=== PATIENT | male | born 1945 | race Caucasian/White ===

== ENCOUNTER → 2019-02-19 10:08 | Outpatient (CLI) | payer MEDICARE, OTHER, SELFPAY ==
--- NOTE | 2019-02-19 | DI.MRI.S_ITS ---
PROCEDURE: MR LUMBAR SPINE WO CON INDICATIONS: Low back pain TECHNIQUE: Noncontrast sagittal T1 spin echo and T2 fast echo, sagittal STIR, axial T1 and T2 fast spin echo through the lumbar spine. In cases with scoliosis, additional coronal T2 fast spin echo may be performed. COMPARISON: None. FINDINGS: Image quality: Excellent. Alignment and Curvature: There is normal bony alignment. Bone Marrow: Marrow is of normal overall signal. No acute vertebral body compression fractures. Spinal Cord: Conus medullaris terminates at the L1-L2 level. Visualized cord demonstrates normal signal and size. Paraspinous Soft Tissues: No paravertebral masses. T12-L1: No canal stenosis or foraminal stenosis. Facet joints are unremarkable. L1-L2: Normal appearance. L2-L3: Normal appearance. L3-L4: Normal appearance. L4-L5: Moderate chronic disc height loss. Diffuse disc bulge. Bilateral facet and ligament hypertrophy. Severe canal stenosis secondary to a combination of disc bulge and facet and ligament hypertrophy. Severe left foraminal narrowing secondary to foraminal disc bulge and facet hypertrophy. Moderate right foraminal narrowing. L5-S1: Diffuse posterior disc bulge, eccentric to the right. The bilateral S1 nerve roots are abutted in the lateral recesses. The right S1 nerve root is mildly posteriorly displaced. There is severe right foraminal narrowing. IMPRESSION: 1. There is severe multifactorial canal stenosis at L4-L5. There is also severe left foraminal narrowing and moderate right foraminal narrowing. 2. L5-S1, there is diffuse posterior disc bulge abutting the bilateral S1 nerve roots and mildly posteriorly displacing the right S1 nerve root. There is severe right foraminal narrowing at this level. Dictated by: Demar Barrera M.D. on 02/21/2019 at 9:45 Approved by: Demar Barrera M.D. on 02/21/2019 at 9:51
== END ==
PROVIDERS: Visit Provider Orthopaedic Surgery Orthopaedic Surgery of the Spine
DX: M51.27 Other intervertebral disc displacement, lumbosacral region (principal); M51.26 Other intervertebral disc displacement, lumbar region; M48.07 Spinal stenosis, lumbosacral region; M48.061 Spinal stenosis, lumbar region without neurogenic claudication
CPT/HCPCS: 72148

== ENCOUNTER → 2019-04-05 08:08 | Outpatient (CLI) | payer MEDICARE, OTHER, SELFPAY ==
--- NOTE | 2019-04-05 | DI.RAD.S_ITS ---
PROCEDURE: XR ABDOMEN 1V INDICATIONS: CALCULUS OF KIDNEY TECHNIQUE: One view of the abdomen acquired. COMPARISON: [facility], CR, XR ABDOMEN 1 VIEW, 03/24/2019, 6:02. FINDINGS: Surgical changes and devices: None. Bowel: Bowel gas pattern is normal. Soft tissues: No new suspicious abdominal calcifications, and the previously identified area of left-sided large calculi at the left upper quadrant are again seen. A double pigtail ureteral stent has been placed, and the calculus is seen to be positioned at the lower third collecting system and area of the left kidney, measuring up to 2.2 cm craniocaudad and 1.1 cm transverse. Visualized solid organ contours appear normal in size. Bones: No suspicious bony lesions. IMPRESSION: Persistent large calculus measuring up to 1.1 x 2.2 cm at the lower third collecting system of the left kidney in this patient with a double pigtail left ureteral catheter in expected position. Dictated by: Luther Pennington M.D. on 04/05/2019 at 10:59 Approved by: Luther Pennington M.D. on 04/05/2019 at 11:01
== END ==
PROVIDERS: Visit Provider Urology
DX: N20.0 Calculus of kidney (principal)
CPT/HCPCS: 74018

== ENCOUNTER 2019-09-23 12:07 | Emergency (ER) | payer MEDICARE, OTHER, SELFPAY ==
--- NOTE | 2019-09-23 12:25 | DI.RAD.S_ITS ---
PROCEDURE: XR CHEST 1V INDICATIONS: chest pain TECHNIQUE: One view of the chest was acquired. COMPARISON: None. FINDINGS: Surgical changes and devices: None. Lungs and pleura: Lungs are clear. No pleural effusions or pneumothorax. Slight elevation of the right diaphragm is present. Mediastinum: Mediastinal contours appear normal. Heart size is normal. There is aortic atherosclerosis. Bones and chest wall: No suspicious bony lesions. Overlying soft tissues appear unremarkable. IMPRESSION: No acute cardiopulmonary process is evident. Dictated by: Costa Awan M.D. on 09/23/2019 at 12:21 Approved by: Costa Awan M.D. on 09/23/2019 at 12:22
[2019-09-23 12:34] VITALS: BP 157/91; PULSE 105; RESP 18; TEMP 36.5; O2SAT 98; BMI 25.0
[2019-09-23 13:00] LABS: Add Manual Diff / Slide Review NO; Basophils Absolute Auto 0 /uL (0-100); Basophils Percent Auto 0.8 % (0-2); Eosinophils Absolute Auto 200 /uL (0-450); Eosinophils Percent Auto 3.7 % (2-4); Hemoglobin 15.7 g/dL (13.5-17.5); Lymphocytes Absolute Auto 1300 /uL (1100-4500); Lymphocytes Percent Auto 22.3 % (25-40); Mean Corpuscular HGB Conc 34.9 % (30-36); Mean Corpuscular Hemoglobin 32.3 PG (26-34); Mean Corpuscular Volume 92.5 fL (80-100); Monocytes Absolute Auto 400 /uL (0-900); Monocytes Percent Auto 6.4 % (3-14); Neutrophils Absolute Auto 3900 /uL (1500-7000); Neutrophils Percent Auto 66.8 % (50-75); Platelet Count 235 X10^3/uL (150-400); Red Blood Cell Count 4.86 X10^6/uL (4.5-5.9); Red Cell Distribution Width 12.7 % (11.6-14.8); White Blood Cell Count 5.8 X10^3/uL (4.5-11.0)
[2019-09-23 13:08] LABS: Prothrombin Time 11.2 SECONDS (10.1-12.7)
[2019-09-23 13:10] LABS: PTT Partial Thromboplastin Tim 31 SECONDS (26.4-36.2)
[2019-09-23 13:13] LABS: Alanine Aminotransferase 39 IU/L (<50); Albumin 4.5 g/dL (3.5-5.0); Albumin Globulin Ratio 1.5 (1.0-2.8); Alkaline Phosphatase 127 U/L (38-126); Aspartate Aminotransferase 47 IU/L (17-59); BUN Creatinine Ratio 16.7 (6-22); Bilirubin Total 0.7 mg/dL (0.2-1.3); Blood Urea Nitrogen 10 mg/dL (9-20); Calcium 9.6 mg/dL (8.4-10.2); Carbon Dioxide 25 mmol/L (22-32); Chloride 98 mmol/L (98-107); Creatine Kinase 76 U/L (55-170); Estimated Glomerular Filt Rate > 60.0 mL/min (>60); Glucose 389 mg/dL (80-110); HEMOLYSIS < 15 (0-50); Lipase 81 U/L (23-300); Potassium 4.3 mmol/L (3.4-5.1); Sodium 133 mmol/L (137-145); Total Protein 7.5 g/dL (6.3-8.2)
--- NOTE | 2019-09-23 13:23 | ED.CHESTPAIN ---
HPI - Chest Pain General Chief Complaint: Chest Pain Stated Complaint: Chest [place] Time Seen by Provider: 09/23/19 12:38 Source: patient Mode of arrival: Ambulatory Limitations: no limitations History of Present Illness HPI narrative: 74-year-old gentleman with diabetes, high blood pressure, hyperlipidemia no long history of atherosclerotic disease with prior stents who presents with a month of increasing severe fatigue, 2 weeks of increasing exertional dyspnea and 3-4 days of increasing chest tightness. The tightness today is exacerbated with almost no movement in continues at rest. He does not describe it is severe pain. He does not report any claudication. He states that this is similar pain to chest pain prior to stenting previously. He describes no fever, cough, chills, lower extremity edema, vomiting, diarrhea, abdominal pain, neurologic changes or skin changes Related Data Home Medications Medication Instructions Recorded Confirmed amlodipine 5 mg PO DAILY 09/23/19 09/23/19 clopidogrel 75 mg PO DAILY 09/23/19 09/23/19 glipizide 10 mg PO BID 09/23/19 09/23/19 insulin glargine [Lantus Solostar 30 unit SUBCUT DAILY 09/23/19 09/23/19 U-100 Insulin] lisinopril 20 mg PO DAILY 09/23/19 09/23/19 pravastatin 40 mg PO DAILY 09/23/19 09/23/19 sitagliptin-metformin [Janumet] 1 tab PO DAILY 09/23/19 09/23/19 tamsulosin 0.4 mg PO QPM 09/23/19 09/23/19 turmeric root extract 500 mg PO DAILY 09/23/19 09/23/19 venlafaxine 150 mg PO DAILY 09/23/19 09/23/19 zolpidem 10 mg PO BEDTIME 09/23/19 09/23/19 Allergies Allergy/AdvReac Type Severity Reaction Status Date / Time No Known Drug Allergies Allergy Verified 09/23/19 13:44 Review of Systems Review of Systems Narrative: All systems reviewed and are unremarkable except as noted in HPI and below Patient History Medical History (Updated 09/23/19 @ 17:17 by Maya Chen MD) CAD (coronary artery disease) (Acute) Diabetes (Acute) Hyperlipidemia (Acute) Hypertension (Acute) Tobacco abuse (Acute) Social History Smoking Status: Current every day smoker Smoking Status: Current every day smoker tobacco type: cigarettes Substance Use Type: does not use Exam Narrative Exam Narrative: General: Healthy appearing, in no acute distress. Able to give a complete and coherent history. Well-nourished well-developed HEENT: Moist mucous membranes, normal sclera with reactive pupils, Neck: No JVD, supple Respiratory: Lungs with minor scattered wheezing no rales no rhonchi. Full and symmetrical air movement Cardiac: Regular rate and rhythm no murmurs no bruits Abdomen: Soft nontender good bowel tones, no flank pain Skin: Warm and dry, no rashes Neurologic: Grossly neurologically intact with no obvious asymmetries or abnormalities Extremities: No trauma, well perfused Psych: Cooperative, appropriate insight and affect Initial Vital Signs Initial Vital Signs: Vital Signs Temperature 97.7 F 09/23/19 12:34 Pulse Rate 105 H 09/23/19 12:34 Respiratory Rate 18 09/23/19 12:34 Blood Pressure 157/91 H 09/23/19 12:34 Pulse Oximetry 98 09/23/19 12:34 Course Orders Ordered: ED Orders 09/23/19 12:25 XR chest 1V Stat EKG-12 Lead Stat 09/23/19 12:50 Complete Blood Count AUTO DIFF Stat Comprehensive Metabolic Panel Stat Lipase Stat Partial Thromboplastin Time Stat Prothrombin Time INR Stat Troponin & CK Cardiac Panel Stat Nitroglycerin (Nitrostat) 0.4 mg SL [id number] PRN PRN Reason: Chest Pain Last Admin: 09/23/19 13:44 Dose: 0.4 mg Documented by: DREW Discontinued Medications Aspirin (Aspirin Chew) 324 mg PO NOW ONE Stop: 09/23/19 13:39 Last Admin: 09/23/19 13:46 Dose: 324 mg Documented by: DREW Nicotine (Nicoderm) 21 mg TOP NOW ONE Stop: 09/23/19 17:19 Last Admin: 09/23/19 17:52 Dose: 21 mg Documented by: DREW Nitroglycerin (Nitro-Bid) 0.5 inch TOP NOW ONE Stop: 09/23/19 15:35 Last Admin: 09/23/19 17:17 Dose: 0.5 inch Documented by: DREW Vital Signs Vital signs: Vital Signs - 8 hr 09/23/19 12:34 09/23/19 13:44 09/23/19 13:52 Temperature 97.7 F Pulse Rate 105 H 114 H Respiratory Rate 18 13 Blood Pressure 157/91 H 157/96 H Blood Pressure [Right Arm] 157/96 H Pulse Oximetry 98 98 09/23/19 15:06 09/23/19 17:17 09/23/19 17:32 Temperature Pulse Rate 93 H 99 H Respiratory Rate 13 19 Blood Pressure 153/47 H Blood Pressure [Right Arm] 110/73 137/76 Pulse Oximetry 97 MDM - Chest Pain Medical Records Data Attestation: I reviewed the patient's medical records. Lab Data Attestation: I reviewed the patient's lab results. Lab results narrative: Mildly elevated alkaline phosphatase Result diagrams: 09/23/19 12:50 09/23/19 12:50 Labs: Lab Results 09/23/19 09/23/19 09/23/19 Range/Units 12:50 12:50 12:50 WBC 5.8 (4.5-11.0) X10^3/uL RBC 4.86 (4.5-5.9) X10^6/uL Hgb 15.7 (13.5-17.5) g/dL Hct 45.0 (41-53) % MCV 92.5 (80-100) fL MCH 32.3 (26-34) PG MCHC 34.9 (30-36) % RDW 12.7 (11.6-14.8) % Plt Count 235 (150-400) X10^3/uL Neut % (Auto) 66.8 (50-75) % Lymph % (Auto) 22.3 L (25-40) % [place] % (Auto) 6.4 (3-14) % Eos % (Auto) 3.7 (2-4) % Baso % (Auto) 0.8 (0-2) % Neut # (Auto) 3900 (7481-4603) /uL Lymph # (Auto) 1300 (5966-0109) /uL [place] # (Auto) 400 (0-900) /uL Eos # (Auto) 200 (0-450) /uL Baso # (Auto) 0 (0-100) /uL PT 11.2 (10.1-12.7) SECONDS INR 1.0 (0.9-1.3) APTT 31 (26.4-36.2) SECONDS Sodium 133 L (137-145) mmol/L Potassium 4.3 (3.4-5.1) mmol/L Chloride 98 (98-107) mmol/L Carbon Dioxide 25 (22-32) mmol/L BUN 10 (9-20) mg/dL Creatinine 0.60 L (0.66-1.25) mg/dL Estimated GFR > 60.0 (>60) mL/min BUN/Creatinine Ratio 16.7 (6-22) Glucose 389 H (80-110) mg/dL Calcium 9.6 (8.4-10.2) mg/dL Total Bilirubin 0.7 (0.2-1.3) mg/dL AST 47 (17-59) IU/L ALT 39 (<50) IU/L Alkaline Phosphatase 127 H (38-126) U/L Total Creatine Kinase 76 (55-170) U/L CK-MB (CK-2) TNP CK-MB (CK-2) Rel Index TNP Troponin I < 0.012 (0.01-0.034) ng/mL Total Protein 7.5 (6.3-8.2) g/dL Albumin 4.5 (3.5-5.0) g/dL Globulin 3.0 (1.7-4.1) g/dL Albumin/Globulin Ratio 1.5 (1.0-2.8) Lipase 81 (23-300) U/L Imaging Data Chest x-ray: Radiologist's Impression: IMPRESSION: No acute cardiopulmonary process is evident. Dictated by: Costa Awan M.D. on 09/23/2019 at 12:21 ECG Data Interpretation: Sinus tach at a rate of 106 Incomplete right bundle branch block Old inferior myocardial infarction No acute ischemia MDM Narrative Medical decision making narrative: Significant risk factors for recurrent acute coronary syndrome. His history is highly suspicious for increasing symptoms than exertional dyspnea and now worsening pain continuing at rest. Pain is completely relieved with nitro. His HEART score is 6. I suspect that he likely would benefit from a repeat catheterization so will moved to see if there are beds available at [facility]. He has not yet established care with a r specialist, he recently moved from [place]. 16:11 care is reviewed with Dr. Whitaker, cardiology. He agrees with transfer to [facility], care by hospitalist service and cardiology consult with probable need for heart catheterization within the next 24 hours unless there are acute changes. Currently patient remains pain free with nitro paste in place 17:[address] [facility] Hospitalist: Will accept patient with diagnosis of unstable angina/acute coronary syndrome without evidence of acute infarct ALS transport to [facility] will be arranged Discharge Plan Departure Patient Disposition: [facility] Clinical Impression: Angina pectoris, unstable Prescriptions: No Action pravastatin 40 mg tablet 40 mg PO DAILY RF: 0 lisinopril 20 mg tablet 20 mg PO DAILY RF: 0 glipizide 10 mg tablet 10 mg PO BID RF: 0 venlafaxine 150 mg capsule,extended release 24hr 150 mg PO DAILY RF: 0 clopidogrel 75 mg tablet 75 mg PO DAILY RF: 0 amlodipine 5 mg tablet 5 mg PO DAILY RF: 0 tamsulosin 0.4 mg capsule 0.4 mg PO QPM RF: 0 zolpidem 10 mg tablet 10 mg PO BEDTIME RF: 0 Janumet 50-1,000 mg tablet 1 tab PO DAILY RF: 0 Lantus Solostar U-100 Insulin 100 unit/mL (3 mL) insulin pen 30 unit SUBCUT DAILY RF: 0 turmeric root extract 500 mg Capsule 500 mg PO DAILY RF: 0
[2019-09-23 13:24] LABS: Troponin I < 0.012 ng/mL (0.01-0.034)
[2019-09-23 13:44] VITALS: BP 157/96
[2019-09-23] MEDS: NITROGLYCERIN 0.4 MG SL TAB SL (13:44)
[2019-09-23] MEDS: ASPIRIN 81 MG CHEW TAB 324 MG PO (13:46)
[2019-09-23 13:52] VITALS: BP 157/96; PULSE 114; RESP 13; O2SAT 98
[2019-09-23 15:06] VITALS: BP 110/73; PULSE 93; RESP 13
[2019-09-23 17:17] VITALS: BP 153/47
[2019-09-23] MEDS: NITROGLYCERIN OINT 1 INCH/GM OINT...G. 0.5 INCH TOP (17:17)
[2019-09-23 17:32] VITALS: BP 137/76; PULSE 99; RESP 19; O2SAT 97
[2019-09-23] MEDS: NICOTINE 21 MG PATCH TOP (17:52)
== END 2019-09-23 18:30 | disposition short-term general hospital (02) ==
PROVIDERS: Emergency Provider Emergency Medicine
DX: I25.110 Atherosclerotic heart disease of native coronary artery with unstable angina pectoris (principal); I11.0 Hypertensive heart disease with heart failure; E78.5 Hyperlipidemia, unspecified; E11.9 Type 2 diabetes mellitus without complications; Z72.0 Tobacco use
CPT/HCPCS: 36415; 71045; 80053; 82550; 83690; 84484; 85025; 85610; 85730; 93005; 93010; 99284

== ENCOUNTER → 2020-03-23 18:31 | Outpatient (ROUT) | payer MEDICARE, OTHER, SELFPAY ==
[2020-03-23 19:26] LABS: Add Manual Diff / Slide Review NO; Basophils Absolute Auto 0 /uL (0-100); Basophils Percent Auto 0.7 % (0-2); Eosinophils Absolute Auto 400 /uL (0-450); Eosinophils Percent Auto 5.4 % (2-4); Hematocrit 41.2 % (41-53); Lymphocytes Absolute Auto 1500 /uL (1100-4500); Lymphocytes Percent Auto 21.9 % (25-40); Mean Corpuscular Hemoglobin 31.1 PG (26-34); Mean Corpuscular Volume 91.4 fL (80-100); Monocytes Absolute Auto 500 /uL (0-900); Monocytes Percent Auto 7.3 % (3-14); Neutrophils Absolute Auto 4400 /uL (1500-7000); Neutrophils Percent Auto 64.7 % (50-75); Platelet Count 235 X10^3/uL (150-400); Red Blood Cell Count 4.51 X10^6/uL (4.5-5.9); Red Cell Distribution Width 12.8 % (11.6-14.8); White Blood Cell Count 6.7 X10^3/uL (4.5-11.0)
[2020-03-23 19:48] LABS: Alanine Aminotransferase 34 IU/L (<50); Albumin Globulin Ratio 1.6 (1.0-2.8); Alkaline Phosphatase 147 U/L (38-126); Aspartate Aminotransferase 37 IU/L (17-59); BUN Creatinine Ratio 16.1 (6-22); Bilirubin Total 0.6 mg/dL (0.2-1.3); Blood Urea Nitrogen 9 mg/dL (9-20); Calcium 9.4 mg/dL (8.4-10.2); Carbon Dioxide 26 mmol/L (22-32); Chloride 100 mmol/L (98-107); Cholesterol 146 mg/dL (140-199); Estimated Glomerular Filt Rate > 60.0 mL/min (>60); Globulin 2.5 g/dL (1.7-4.1); Glucose 336 mg/dL (80-110); HDL Cholesterol 33 mg/dL (40-60); HEMOLYSIS < 15 (0-50); LDL Cholesterol Calculated 52 mg/dL (<100); Sodium 134 mmol/L (137-145); Total Protein 6.5 g/dL (6.3-8.2); Triglycerides 303 mg/dL (35-150)
[2020-03-23 20:14] LABS: TSH w/ Reflex to FT4 0.77 uIU/mL (0.47-4.68)
[2020-03-23 20:17] LABS: Prostate Specific Antigen 0.354 ng/mL (0.10-4.00)
== END ==
PROVIDERS: Visit Provider Internal Medicine
DX: E78.2 Mixed hyperlipidemia (principal); N40.1 Benign prostatic hyperplasia with lower urinary tract symptoms; R53.83 Other fatigue
CPT/HCPCS: 80053; 80061; 84153; 84443; 85025

== ENCOUNTER → 2022-04-22 11:04 | Outpatient (CLI) | payer MEDICARE, OTHER, SELFPAY ==
--- NOTE | 2022-04-22 | DI.RAD.S_ITS ---
PROCEDURE: XR LUMBAR SPINE 2-3V INDICATIONS: acute bilateral low back pain with sciatica TECHNIQUE: 3 views of the lumbar spine were acquired. COMPARISON: None. FINDINGS: Bones: 5 [id number] vertebrae are present. There is very mild rightward curvature of lower lumbar spine centered at L3-4 level. Degenerative endplate changes, loss of disc height and bilateral facet arthrosis throughout lumbar spine is seen more prominent at L4-5 and L5-S1 levels. No vertebral body compression fractures. No suspicious bony lesions. Soft tissues: Overlying bowel gas pattern is normal. No suspicious soft tissue calcifications. IMPRESSION: Very mild rightward curvature of lower lumbar spine centered at L3-4 level. Degenerative disc disease throughout lumbar spine as above. No acute compression fracture or significant listhesis. Dictated by: Jimbo Peña M.D. on 04/22/2022 at 13:02 Approved by: Jimbo Peña M.D. on 04/22/2022 at 13:12
== END ==
PROVIDERS: PCP Student in an Organized Health Care Education/Training Program; Referring Provider Student in an Organized Health Care Education/Training Program; Visit Provider Student in an Organized Health Care Education/Training Program
DX: M51.16 Intervertebral disc disorders with radiculopathy, lumbar region; M51.17 Intervertebral disc disorders with radiculopathy, lumbosacral region
CPT/HCPCS: 72100

== ENCOUNTER → 2022-05-23 11:04 | Outpatient (CLI) | payer MEDICARE, OTHER, SELFPAY ==
--- NOTE | 2022-05-23 11:39 | DI.MRI.S_ITS ---
PROCEDURE: MR LUMBAR SPINE WO CON INDICATIONS: SPONDYLOLISTHESIS, LUMBAR REGION TECHNIQUE: Noncontrast sagittal T1 spin echo and T2 fast echo, sagittal STIR, and T2 fast spin echo through the lumbar spine. In cases with scoliosis, additional coronal T2 fast spin echo may be performed. COMPARISON: [facility], MR, MR LUMBAR SPINE WO CON, 02/19/2019, 10:24. [facility], CR, XR LUMBAR SPINE 2-3V, 04/22/2022, 11:19. [facility], CT, CT ABDOMEN RENAL PROTOCOL, 03/08/2019, 16:44. FINDINGS: Image quality: This examination is limited by involuntary motion artifact. Alignment and Curvature: There is minimal to mild dextroconvex lumbar scoliotic curvature. There is overall straightening of the normal lumbar lordosis. No focal AP alignment abnormality is seen. Bone Marrow: Marrow is of normal overall signal. No acute vertebral body compression fractures. Spinal Cord: Conus medullaris terminates at the L1 level. Visualized cord demonstrates normal signal and size. Paraspinous Soft Tissues: No paravertebral masses. Simple appearing bilateral renal cysts can be seen. T12-L1: Normal appearance. L1-L2: No significant abnormality is seen. L2-L3: No significant abnormality is seen. L3-L4: The disc height is well-preserved. Loss of disc signal is seen at this level. Moderate disc bulge is seen, which is eccentric to the right. Mild facet joint hypertrophy is seen. There is [id number] bilateral neural foraminal narrowing seen. Mild central canal narrowing is seen. When comparison is made with the prior images, these findings are similar. L4-L5: There is at least moderate loss of disc height and disc signal seen on the left side. Reactive marrow endplate changes are seen which are hypointense on T1-weighted imaging and hyperintense on T2 weighted imaging, which is most consistent with edema (Modic type I changes). At least moderate disc bulge is seen, with a central disc extrusion, with mild superior migration of the disc material. Moderate to prominent facet hypertrophy is seen. Associated hypertrophy of the ligamentum flavum can be seen. There is at least moderate right-sided and moderate to severe left-sided neural foraminal narrowing. Moderate to severe central canal narrowing is seen at this level, as on series 6, image 5. The degree of central canal narrowing is mildly progressed compared to 2019. L5-S1: [id number] loss of disc height and disc signal can be seen. Moderate generalized disc bulge is seen. There is a superimposed central disc protrusion. Mild to moderate facet hypertrophy is seen. There is moderate to severe right-sided neural foraminal narrowing, with a degree of compression upon the exiting right L5 nerve root. No significant left-sided neural foraminal narrowing is seen. Mild central canal narrowing is seen. When comparison is made with the prior images, these findings are similar. IMPRESSION: Lower lumbar spine degenerative changes are seen, which are progressed at L4-L5 compared to 2019, yet otherwise appear similar to the prior images. Dictated by: Erik June M.D. on 05/23/2022 at 12:29 Approved by: Erik June M.D. on 05/23/2022 at 12:34
== END ==
PROVIDERS: PCP Student in an Organized Health Care Education/Training Program; Referring Provider Orthopaedic Surgery Orthopaedic Surgery of the Spine; Visit Provider Orthopaedic Surgery Orthopaedic Surgery of the Spine
DX: M47.816 Spondylosis without myelopathy or radiculopathy, lumbar region (principal); M43.16 Spondylolisthesis, lumbar region
CPT/HCPCS: 72148

== ENCOUNTER → 2023-09-28 11:51 | Outpatient (CLI) | payer MEDICARE, OTHER, SELFPAY ==
--- NOTE | 2023-09-28 11:53 | DI.RAD.S_ITS ---
PROCEDURE: XR CHEST 2V INDICATIONS: PNEUMONIA TECHNIQUE: 2 views of the chest were acquired. COMPARISON: , CR, XR CHEST 1V, 09/23/2019, 12:49. FINDINGS: Surgical changes and devices: None. Lungs and pleura: Lungs are clear. No pleural effusions or pneumothorax. Mediastinum: Mediastinal contours are normal. Heart size is normal. Bones and chest wall: No suspicious bony abnormalities. Soft tissues appear unremarkable. IMPRESSION: No acute cardiopulmonary abnormality is seen. Dictated by: Ava Stevens M.D. on 09/28/2023 at 16:41 Approved by: Ava Stevens M.D. on 09/28/2023 at 16:42
== END ==
PROVIDERS: PCP Student in an Organized Health Care Education/Training Program; Referring Provider Student in an Organized Health Care Education/Training Program; Visit Provider Student in an Organized Health Care Education/Training Program
DX: J18.9 Pneumonia, unspecified organism (principal)
CPT/HCPCS: 71046

== ENCOUNTER 2024-08-31 13:47 | Emergency (ER) | payer OTHER, MEDICARE, SELFPAY ==
[2024-08-31 14:21] VITALS: BP 164/78; PULSE 102; RESP 14; TEMP 36.9; O2SAT 96; BMI 23.5
--- NOTE | 2024-08-31 16:42 | DI.CT.S_ITS ---
PROCEDURE: CT KIDNEY URETER BLADDER (KUB) INDICATIONS: Hx 60+ Kidney stones, pain onset noon today, hematuria TECHNIQUE: Axial sections were acquired from the lung bases to the pubic symphysis. Coronal and sagittal reformats were performed. For radiation dose reduction, the following was used: automated exposure control, adjustment of mA and/or kV according to patient size. COMPARISON: CT, CT ABDOMEN RENAL PROTOCOL, 03/08/2019, 16:44. FINDINGS: Image quality: Diagnostic. Lower Chest: No significant findings. URINARY: Right Kidney: 3 nonobstructing renal calculi the largest in the inferior pole measuring 4 mm. Simple renal cyst. Right Ureter: No hydroureter. Left Kidney: 6-7 calcifications, nonobstructing. The largest is in the inferior pole measuring 0.7 cm Hounsfield units 1104. There is mild perinephric stranding. Simple renal cyst. Left Ureter: No hydroureter. Bladder: Normal wall thickness. No stones. ABDOMEN: Liver: No contour-deforming solid mass. Gallbladder: No radiopaque gallstones or wall thickening. Biliary ducts: No biliary dilation. Pancreas: No ductal dilation. Spleen: Size is within normal limits. Adrenal Glands: No adrenal nodules. Stomach and Bowel: Normal colonic caliber, without significant wall thickening. Appendix is normal. Prominent colonic stool. Diverticula without inflammatory change. Peritoneum: No abnormal intraperitoneal fluid. No free air. Ventral Wall: No hernia. Abdominal Nodes: No enlarged retroperitoneal or mesenteric lymph nodes. Vessels: Aorta and inferior vena cava are normal in size. PELVIS: Pelvic Organs: Prostate gland is prominent with calcifications. Pelvic Nodes: Unremarkable. Miscellaneous: No inguinal hernias are seen. Bones: Unremarkable. IMPRESSION: No obstructing stones or hydronephrosis. Mild left perinephric stranding. Recently passed stone cannot be excluded. Prominent colonic stool without obstruction. Diverticulosis Dictated by: Ava Stevens M.D. on 08/31/2024 at 17:21 Approved by: Ava Stevens M.D. on 08/31/2024 at 17:25
[2024-08-31] MEDS: KETOROLAC 30 MG/ML VIAL 15 MG IV (16:52)
[2024-08-31 17:00] LABS: Bacteria Urine None Seen; Culture Indicated Urine Cult Not Indicated; RBC Urine 5-10/HPF (0-5/HPF); Squamous Epithelial Cell Urine None Seen (0-5/HPF); Urine Volume 10mL (spun); WBC Urine 1-5/HPF (0-5/HPF)
[2024-08-31 17:12] LABS: Add Manual Diff / Slide Review NO; Basophils Absolute Auto 100 /uL (0-100); Basophils Percent Auto 0.5 % (0-2); Eosinophils Absolute Auto 100 /uL (0-450); Eosinophils Percent Auto 0.7 % (2-4); Hematocrit 43.7 % (41-53); Hemoglobin 15.1 g/dL (13.5-17.5); Lymphocytes Absolute Auto 1600 /uL (1100-4500); Lymphocytes Percent Auto 14.5 % (25-40); Mean Corpuscular HGB Conc 34.5 % (30-36); Mean Corpuscular Hemoglobin 32.3 PG (26-34); Mean Corpuscular Volume 93.6 fL (80-100); Monocytes Absolute Auto 400 /uL (0-900); Monocytes Percent Auto 3.4 % (3-14); Neutrophils Absolute Auto 8700 /uL (1500-7000); Neutrophils Percent Auto 80.9 % (50-75); Platelet Count 286 X10^3/uL (150-400); Red Blood Cell Count 4.67 X10^6/uL (4.5-5.9); Red Cell Distribution Width 12.7 % (11.6-14.8); White Blood Cell Count 10.7 X10^3/uL (4.5-11.0)
[2024-08-31 17:24] LABS: Alanine Aminotransferase 37 IU/L (<50); Albumin 4.7 g/dL (3.5-5.0); Albumin Globulin Ratio 1.6 (1.0-2.8); Alkaline Phosphatase 100 U/L (38-126); Aspartate Aminotransferase 56 IU/L (17-59); BUN Creatinine Ratio 20.3 (6-22); Bilirubin Total 0.8 mg/dL (0.2-1.3); Blood Urea Nitrogen 12 mg/dL (9-20); Calcium 9.4 mg/dL (8.4-10.2); Carbon Dioxide 24 mmol/L (22-32); Chloride 99 mmol/L (98-107); Estimated Glomerular Filt Rate > 60 mL/min (>60); Globulin 2.9 g/dL (1.7-4.1); Glucose 253 mg/dL (80-110); HEMOLYSIS < 15 (0-50); Potassium 4.4 mmol/L (3.4-5.1); Sodium 134 mmol/L (137-145); Total Protein 7.6 g/dL (6.3-8.2)
--- NOTE | 2024-08-31 18:25 | ED_ITS ---
HPI - General Adult General Chief complaint: Urogenital-Male Stated complaint: kidney stone Time Seen by Provider: 08/31/24 18:14 Source: patient Mode of arrival: Ambulatory History of Present Illness HPI narrative: 79-year-old male with history of recurrent kidney stones, multiple episodes of prior urological interventions, now with left-sided flank pain onset earlier today, thinks he might have passed it, pain seems to be improving. No fevers or chills. No nausea or vomiting. No diarrhea. No black or red stools. No injury trauma new activities. He has had rather large stones in the past, was requesting imaging. Related Data Home Medications Medication Instructions Recorded Confirmed amlodipine 5 mg tablet 5 mg PO DAILY 09/23/19 09/23/19 clopidogrel 75 mg tablet 75 mg PO DAILY 09/23/19 09/23/19 glipizide 10 mg tablet 10 mg PO BID 09/23/19 09/23/19 insulin glargine 100 unit/mL (3 30 unit SUBCUT DAILY 09/23/19 09/23/19 mL) subcutaneous pen (Lantus Solostar U-100 Insulin) lisinopril 20 mg tablet 20 mg PO DAILY 09/23/19 09/23/19 pravastatin 40 mg tablet 40 mg PO DAILY 09/23/19 09/23/19 sitagliptin phosphate 50 1 tab PO DAILY 09/23/19 09/23/19 mg-metformin 1,000 mg tablet (Janumet) tamsulosin 0.4 mg capsule 0.4 mg PO QPM 09/23/19 09/23/19 turmeric root extract 500 mg 500 mg PO DAILY 09/23/19 09/23/19 capsule venlafaxine 150 mg 150 mg PO DAILY 09/23/19 09/23/19 capsule,extended release 24 hr zolpidem 10 mg tablet 10 mg PO BEDTIME 09/23/19 09/23/19 Allergies Allergy/AdvReac Type Severity Reaction Status Date / Time No Known Drug Allergies Allergy Verified 09/23/19 13:44 Patient History Medical History (Updated 08/31/24 @ 18:37 by Conner Nuno MD) Tobacco abuse Hyperlipidemia Hypertension Diabetes CAD (coronary artery disease) Social History Smoking Status: Current every day smoker Smoking Status: Current every day smoker tobacco type: cigarettes Exam Narrative Exam Narrative: GENERAL: Well-developed patient, in mild distress. HEAD: Atraumatic. Normocephalic. EYES: Pupils equal round and reactive. Extraocular motions intact. No scleral icterus. No injection or drainage. ENT: Nose without bleeding, purulent drainage. Throat without erythema, tonsillar hypertrophy or exudate. Airway patent. NECK: Trachea midline. Non tender CARDIOVASCULAR: Regular rate and rhythm without murmurs, gallops, or rubs. RESPIRATORY: Clear to auscultation. Breath sounds equal bilaterally. No wheezes, rales, or rhonchi. GASTROINTESTINAL: Abdomen soft, non-tender, nondistended. EXTREMITIES: No edema or joint tenderness. BACK: Nontender without deformity or crepitance. No flank tenderness. NEURO: AOx3. Motor functions grossly nonfocal SKIN: No rash or erythema of visible areas Initial Vital Signs Initial Vital Signs: Vital Signs Temperature 98.4 F 08/31/24 14:21 Pulse Rate 102 H 08/31/24 14:21 Respiratory Rate 14 08/31/24 14:21 Blood Pressure 164/78 H 08/31/24 14:21 Pulse Oximetry 96 08/31/24 14:21 Oxygen Delivery Method Room Air 08/31/24 14:21 Course Orders Ordered: Discontinued Medications Ketorolac Tromethamine (Ketorolac 30 Mg/Ml Vial) 15 mg IV NOW ONE Stop: 08/31/24 16:45 Last Admin: 08/31/24 16:52 Dose: 15 mg Documented By: SB Vital Signs Vital signs: Vital Signs - 8 hr 08/31/24 14:21 Temperature 98.4 F Pulse Rate 102 H Respiratory Rate 14 Blood Pressure 164/78 H Pulse Oximetry 96 Oxygen Delivery Method Room Air Medical Decision Making Lab Data Lab results reviewed: Yes I reviewed the patient's lab results. Lab results narrative: White blood cell count 10,700, hemoglobin 15.1, platelets adequate. BUN 12 with creatinine 0.59 normal. Glucose 253, history of diabetes noted. Normal anion gap. Sodium 134 without correction. Urinalysis with some red cells, no bacteria, no inflammatory markers, no criteria for urine culture. 08/31/24 17:00 08/31/24 17:00 Labs: Lab Results 08/31/24 08/31/24 Range/Units 16:30 17:00 WBC 10.7 (4.5-11.0) X10^3/uL RBC 4.67 (4.5-5.9) X10^6/uL Hgb 15.1 (13.5-17.5) g/dL Hct 43.7 (41-53) % MCV 93.6 (80-100) fL MCH 32.3 (26-34) PG MCHC 34.5 (30-36) % RDW 12.7 (11.6-14.8) % Plt Count 286 (150-400) X10^3/uL Neut % (Auto) 80.9 H (50-75) % Lymph % (Auto) 14.5 L (25-40) % [place] % (Auto) 3.4 (3-14) % Eos % (Auto) 0.7 L (2-4) % Baso % (Auto) 0.5 (0-2) % Neut # (Auto) 8700 H (9987-3560) /uL Lymph # (Auto) 1600 (4161-0748) /uL [place] # (Auto) 400 (0-900) /uL Eos # (Auto) 100 (0-450) /uL Baso # (Auto) 100 (0-100) /uL Sodium 134 L (137-145) mmol/L Potassium 4.4 (3.4-5.1) mmol/L Chloride 99 (98-107) mmol/L Carbon Dioxide 24 (22-32) mmol/L BUN 12 (9-20) mg/dL Creatinine 0.59 L (0.66-1.25) mg/dL Estimated GFR > 60 (>60) mL/min BUN/Creatinine Ratio 20.3 (6-22) Glucose 253 H (80-110) mg/dL Calcium 9.4 (8.4-10.2) mg/dL Total Bilirubin 0.8 (0.2-1.3) mg/dL AST 56 (17-59) IU/L ALT 37 (<50) IU/L Alkaline Phosphatase 100 (38-126) U/L Total Protein 7.6 (6.3-8.2) g/dL Albumin 4.7 (3.5-5.0) g/dL Globulin 2.9 (1.7-4.1) g/dL Albumin/Globulin Ratio 1.6 (1.0-2.8) Urine RBC 5-10/hpf H (0-5/HPF) Urine WBC 1-5/hpf (0-5/HPF) Ur Squamous Epith Cells None seen (0-5/HPF) Urine Bacteria None seen (None) Ur Culture Indicated? Cult not indicated Vol Urine Centrifuged 10ml (spun) Urine Dip Bedside Urine Glucose 1000 mg/dl Bedside Urine Bilirubin - Negative Bedside Urine Ketone - Negative Urine Specific [place] 1.015 Bedside Urine Occult Blood - Negative Bedside Urine pH 6 Bedside Urine Protein +/- 15 Bedside Urine Urobilinogen - Negative Bedside Urine Nitrite - Negative Bedside Urine Leukocytes - Negative Esterase Point of care testing: Urine Dip Bedside Urine Glucose 1000 mg/dl Bedside Urine Bilirubin - Negative Bedside Urine Ketone - Negative Urine Specific [place] 1.015 Bedside Urine Occult Blood - Negative Bedside Urine pH 6 Bedside Urine Protein +/- 15 Bedside Urine Urobilinogen - Negative Bedside Urine Nitrite - Negative Bedside Urine Leukocytes - Negative Esterase Imaging Data CT scan - abdomen/pelvis: Radiologist's Impression: [place] [address] CT Scan Report Signed Patient: Sherif Morataya MR#: [id number] : 1945 Acct:[id number] Age/Sex: 79 / M Date of Service: 08/31/24 Loc: ED Accession Number: [id number] Procedure: CT kidney ureter bladder (KUB) Ordering Provider: Kathleen Brandon D.O. PROCEDURE: CT KIDNEY URETER BLADDER (KUB) INDICATIONS: Hx 60+ Kidney stones, pain onset noon today, hematuria TECHNIQUE: Axial sections were acquired from the lung bases to the pubic symphysis. Coronal and sagittal reformats were performed. For radiation dose reduction, the following was used: automated exposure control, adjustment of mA and/or kV according to patient size. COMPARISON: CT, CT ABDOMEN RENAL PROTOCOL, 03/08/2019, 16:44. FINDINGS: Image quality: Diagnostic. Lower Chest: No significant findings. URINARY: Right Kidney: 3 nonobstructing renal calculi the largest in the inferior pole measuring 4 mm. Simple renal cyst. Right Ureter: No hydroureter. Left Kidney: 6-7 calcifications, nonobstructing. The largest is in the inferior pole measuring 0.7 cm Hounsfield units 1104. There is mild perinephric stranding. Simple renal cyst. Left Ureter: No hydroureter. Bladder: Normal wall thickness. No stones. ABDOMEN: Liver: No contour-deforming solid mass. Gallbladder: No radiopaque gallstones or wall thickening. Biliary ducts: No biliary dilation. Pancreas: No ductal dilation. Spleen: Size is within normal limits. Adrenal Glands: No adrenal nodules. Stomach and Bowel: Normal colonic caliber, without significant wall thickening. Appendix is normal. Prominent colonic stool. Diverticula without inflammatory change. Peritoneum: No abnormal intraperitoneal fluid. No free air. Ventral Wall: No hernia. Abdominal Nodes: No enlarged retroperitoneal or mesenteric lymph nodes. Vessels: Aorta and inferior vena cava are normal in size. PELVIS: Pelvic Organs: Prostate gland is prominent with calcifications. Pelvic Nodes: Unremarkable. Miscellaneous: No inguinal hernias are seen. Bones: Unremarkable. IMPRESSION: No obstructing stones or hydronephrosis. Mild left perinephric stranding. Recently passed stone cannot be excluded. Prominent colonic stool without obstruction. Diverticulosis Dictated by: Ava Stevens M.D. on 08/31/2024 at 17:21 Approved by: Ava Stevens M.D. on 08/31/2024 at 17:25 [facility] Narrative Medical decision making narrative: 79-year-old male with history of recurrent stones and prior urologic interventions, left-sided nontraumatic flank pain today, concerned he has another large stone, requesting imaging at triage, no CVA tenderness, no anterior abdominal tenderness. Labs sent from triage. CT abdomen and pelvis ordered from triage. White blood cell count normal, renal function normal, glucose 250 elevated with known history of diabete, normal anion gap. CT abdomen and pelvis results pending. CT abdomen and pelvis. Impressions: ?no obstructing stones or hydronephrosis. Mild left perinephric stranding. Recently passed stone can not be excluded. Prominent colonic stool without obstruction. Diverticulosis. ? See radiology report. There were mentioned of other non obstructing kidney stones present. No renal abscess. Patient feels better. CT suggestive of recently passed left-sided stone, there are some residual stones nonobstructing in the kidney/kidneys. Urinalysis not obvious for infection. No antibiotics indicated. Follow up advised with Urology, as her maybe some indication for clean out of residual renal nonobstructing stones. Discharged home with family. Follow up with Urology Discharge Plan Departure Patient Disposition: Home Clinical Impression: Left flank pain, History of kidney stones Activity Restrictions/Additional Instructions: Mr. Morataya, Left flank pain without known trauma, no fever on triage, unremarkable vital signs. History of numerous previous kidney stones, some of when she had been quite large and required Urology interventions to resolve. You had required imaging at triage. Labs were sent which were reassuring. Urinalysis showed slight blood but not obviously infected. CT scan showed left-sided stranding of your left kidney, some dilation of the left ureter, but no stone in the actual left ureter, and no stone currently obstructing the left kidney.Other nonobstructing stones are present in your kidneys, they may or may not pass in the future. See copy of your CT report from today. Urinalysis not obvious for infection. No indications for antibiotics at this time. There was also some mention of colonic stool, which can not be cause of discomfort, but not by history the cause of your left-sided flank pain today. This can represent constipation however, consider increased fiber in your diet and stay hydrated. Continue taking your regular medications for now. Follow up with your regular physician if symptoms are recurring. Follow up with your regular scheduled of follow up appointments. Return earlier to this/nearest emergency department for any change worsening symptoms or any concerns prior. Thank you for allowing our team to evaluate you today. Prescriptions: No Action pravastatin 40 mg tablet 40 mg PO DAILY Patient Comments: TAKE 1 TABLET BY MOUTH ONCE DAILY AT BEDTIME lisinopril 20 mg tablet 20 mg PO DAILY Patient Comments: TAKE 1 TABLET BY MOUTH ONCE DAILY glipizide 10 mg tablet 10 mg PO BID Patient Comments: TAKE 1 TABLET BY MOUTH TWICE DAILY venlafaxine 150 mg capsule,extended release 24hr 150 mg PO DAILY Patient Comments: TAKE 1 CAPSULE BY MOUTH ONCE DAILY clopidogrel 75 mg tablet 75 mg PO DAILY Patient Comments: TAKE 1 TABLET BY MOUTH ONCE DAILY amlodipine 5 mg tablet 5 mg PO DAILY Patient Comments: TAKE 1 TABLET BY MOUTH ONCE DAILY tamsulosin 0.4 mg capsule 0.4 mg PO QPM Patient Comments: TAKE 1 CAPSULE BY MOUTH IN THE EVENING zolpidem 10 mg tablet 10 mg PO BEDTIME Patient Comments: TAKE 1 TABLET BY MOUTH ONCE DAILY AT BEDTIME Janumet 50-1,000 mg tablet 1 tab PO DAILY Patient Comments: TAKE 1 TABLET BY MOUTH ONCE DAILY Lantus Solostar U-100 Insulin 100 unit/mL (3 mL) insulin pen 30 unit SUBCUT DAILY Patient Comments: INJECT 30 UNITS SUBCUTANEOUSLY DAILY turmeric root extract 500 mg Capsule 500 mg PO DAILY Referrals: Pamela Powell PA-C [Primary Care Provider] - Stand Alone Forms: Patient Portal/API/Survey
[2024-08-31 18:48] VITALS: BP 162/89; PULSE 84; O2SAT 95
== END 2024-08-31 18:54 | disposition home or self-care (01) ==
PROVIDERS: Emergency Medicine; Emergency Provider Emergency Medicine; PCP Student in an Organized Health Care Education/Training Program
DX: R10.9 Unspecified abdominal pain (principal); Z87.442 Personal history of urinary calculi; E11.9 Type 2 diabetes mellitus without complications; Z79.4 Long term (current) use of insulin; I10 Essential (primary) hypertension; R31.9 Hematuria, unspecified
CPT/HCPCS: 36415; 74176; 80053; 81003; 81015; 85025; 96374; 99284; J1885

== ENCOUNTER 2024-09-20 14:56 | Emergency (ER) | payer OTHER, SELFPAY ==
[2024-09-20] VITALS (29 sets, daily range): BP systolic 145–217; BP diastolic 76–107; PULSE 78–113; RESP 13–24; TEMP 36.9; O2SAT 95–100; BMI 23.5
--- NOTE | 2024-09-20 15:05 | DI.RAD.S_ITS ---
PROCEDURE: XR CHEST 1V INDICATIONS: Possible stroke TECHNIQUE: One view of the chest was acquired. COMPARISON: [facility], CR, XR CHEST 2V, 09/28/2023, 11:52. [facility], CR, XR CHEST 1V, 09/23/2019, 12:49. FINDINGS: Surgical changes and devices: Surgical clips project over the left neck. Lungs and pleura: Mildly low lung volumes bilaterally, which accentuate pulmonary markings. No pleural effusions or pneumothorax. Mediastinum: Mediastinal contours appear normal. Heart size is normal. Bones and chest wall: No suspicious bony lesions. Overlying soft tissues appear unremarkable. IMPRESSION: No acute cardiopulmonary abnormality is seen. Approved by: Uri Ruano M.D. on 09/20/2024 at 15:25
--- NOTE | 2024-09-20 15:05 | DI.CT.S_ITS ---
PROCEDURE: CT ANGIO HEAD AND NECK INDICATIONS: left arm weakness/R peripheral vision loss 0830 TECHNIQUE: After the administration of intravenous contrast, 1 mm thick sections acquired from the aortic arch through the [place] of [place]. 3-dimensional vkgalcq-kgcoemdvs-neiuhvgufy (MIP) and/or volume rendering reformats were acquired of the central intracranial vasculature and neck separately. For radiation dose reduction, the following was used: automated exposure control, adjustment of mA and/or kV according to patient size. COMPARISON: [facility], CT, CT STROKE, 09/20/2024, 15:10. FINDINGS: Image quality: Diagnostic. BRAIN: Please see the separately dictated noncontrast CT of the head performed at the same time. No suspicious intracranial arterial phase enhancement. Mild mucosal thickening is seen in the left sphenoid sinus. The remaining paranasal sinuses and the mastoid air cells are clear. HEAD CT ANGIOGRAPHY: Anterior circulation: Intracranial internal carotid arteries demonstrate atherosclerotic calcifications without hemodynamically significant stenosis. Mildly prominent fluid in the right ophthalmic artery. Suspected 2 mm aneurysm in the supraclinoid right ICA at the ophthalmic artery origin. The flow within the paired anterior cerebral arteries is normal and symmetric. The flow within the middle cerebral arteries is normal and symmetric. The anterior communicating artery is seen. No aneurysms are seen. Posterior circulation: Intracranial portion of the left vertebral artery is diminutive. Atherosclerotic calcifications are seen in the intracranial portion of the right vertebral artery and the basilar artery without definite hemodynamically significant stenosis. Visualized portions of the vertebral arteries demonstrate normal caliber, and join to form a normal appearing basilar artery. Flow within the posterior cerebral arteries is normal and symmetric. No aneurysms are seen. NECK CT ANGIOGRAPHY: Carotid system: The great vessels demonstrate a conventional anatomy as they arise from the aortic arch. Atherosclerotic plaque result in loss of vertebra sent narrowing of the left subclavian artery at the origin The origins of the common carotid arteries appear patent. The common carotid arteries demonstrate normal caliber and courses. Severe atherosclerotic calcifications at the right carotid bifurcation resulting in greater than 70% stenosis of the proximal right internal carotid artery. Probable postsurgical changes from left carotid endarterectomy without recurrent narrowing. Posterior circulation: Streak artifact obscures the left vertebral artery origin. Right vertebral artery is congenitally dominant. Atherosclerotic calcifications in the proximal right vertebral artery without hemodynamically significant stenosis. The more superior extracranial portions of both vertebral arteries also demonstrate normal courses and calibers. Soft tissues: Nonspecific subcutaneous edema in the posterior suboccipital scalp. Bones: No suspicious bony lesions. Multilevel cervical spondylosis. IMPRESSION: 1. No hemodynamically significant intracranial arterial stenosis or large vessel occlusion. 2. 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 3. Greater than 70% stenosis of the right internal carotid artery at the carotid bifurcation. 4. Status post left carotid endarterectomy. Any quantitative measurements of stenosis were performed using NASCET criteria. Approved by: Uri Ruano M.D. on 09/20/2024 at 15:41
--- NOTE | 2024-09-20 15:05 | EKG_ITS ---
[address] [address] Test Date: 2024-09-20 Pat Name: Sherif Morataya Department: [facility] Room: Gender: Male Finger Waver: OUSMANE : 1945 Requested By: Order Number: [id number] Reading MD: Pan Meyer Measurements Intervals [place] Rate: 105 P: 44 WI: 200 QRS: -79 QRSD: 140 T: 25 QT: 360 QTc: 475 Interpretive Statements Sinus tachycardia Left axis deviation Right bundle branch block Electronically Signed On 09-20-2024 18:29:30 PST by Pan Meyer
--- NOTE | 2024-09-20 15:10 | DI.CT.S_ITS ---
PROCEDURE: CT STROKE INDICATIONS: Positive BE-FAST, Stroke symptoms TECHNIQUE: Noncontrast 4.5 mm thick angled axial sections acquired from the foramen magnum to the vertex, with coronal reformats. For radiation dose reduction, the following was used: automated exposure control, adjustment of mA and/or kV according to patient size. COMPARISON: None. FINDINGS: Image quality: Diagnostic. CSF spaces: Basal cisterns are patent. No extra-axial fluid collections. The ventricles are symmetric in size and shape. Brain: No acute intracranial hemorrhage or mass effect. There is cerebral volume loss for age, with resultant ventricular and sulcal prominence. There are periventricular and deep white matter chronic small vessel ischemic changes. There is intracranial atherosclerosis. Skull and face: Mild nonspecific subcutaneous edema at the right frontal scalp and posterior suboccipital scalp. Calvarium and visualized facial bones appear intact, without suspicious lesions. Sinuses: Visualized sinuses and mastoids are clear. IMPRESSION: 1. No acute intracranial pathology. 2. Moderate chronic microvascular ischemic changes and generalized parenchymal volume loss. Findings were discussed with the referring provider comment Dr. Lee, by telephone on 09/20/2024 at 3:23 PM. This study fulfills neurological imaging criteria for inclusion or exclusion of acute stroke therapies based on available published neurological guidelines. Approved by: Uri Ruano M.D. on 09/20/2024 at 15:24
[2024-09-20 15:16] LABS: Add Manual Diff / Slide Review NO; Basophils Absolute Auto 100 /uL (0-100); Basophils Percent Auto 0.9 % (0-2); Eosinophils Absolute Auto 200 /uL (0-450); Eosinophils Percent Auto 3.2 % (2-4); Hematocrit 38.2 % (41-53); Hemoglobin 13.2 g/dL (13.5-17.5); Lymphocytes Absolute Auto 1800 /uL (1100-4500); Lymphocytes Percent Auto 25.2 % (25-40); Mean Corpuscular HGB Conc 34.5 % (30-36); Monocytes Absolute Auto 500 /uL (0-900); Neutrophils Absolute Auto 4600 /uL (1500-7000); Neutrophils Percent Auto 63.7 % (50-75); Platelet Count 259 X10^3/uL (150-400); Red Blood Cell Count 4.11 X10^6/uL (4.5-5.9); Red Cell Distribution Width 12.8 % (11.6-14.8); White Blood Cell Count 7.2 X10^3/uL (4.5-11.0)
[2024-09-20 15:23] LABS: Prothrombin Time 11.2 SECONDS (9.4-12.5)
[2024-09-20 15:26] LABS: PTT Partial Thromboplastin Tim 32 SECONDS (25.1-36.5)
[2024-09-20 15:40] LABS: Alanine Aminotransferase 32 IU/L (<50); Albumin 4.3 g/dL (3.5-5.0); Albumin Globulin Ratio 1.7 (1.0-2.8); Alkaline Phosphatase 144 U/L (38-126); Aspartate Aminotransferase 31 IU/L (17-59); Bilirubin Total 0.6 mg/dL (0.2-1.3); Blood Urea Nitrogen 16 mg/dL (9-20); Calcium 8.9 mg/dL (8.4-10.2); Carbon Dioxide 25 mmol/L (22-32); Chloride 96 mmol/L (98-107); Creatine Kinase 76 U/L (55-170); Estimated Glomerular Filt Rate > 60 mL/min (>60); Globulin 2.5 g/dL (1.7-4.1); HEMOLYSIS 18 (0-50); Magnesium 1.6 mg/dL (1.6-2.3); Potassium 4.3 mmol/L (3.4-5.1); Sodium 132 mmol/L (137-145); Total Protein 6.8 g/dL (6.3-8.2)
[2024-09-20 15:46] LABS: UR Morphine/Opiate cutoff 300 Negative (Negative); Ur Creatinine Normal (Normal); Ur Specific Gravity Normal (Normal); Urine Amphetamines Negative (Negative); Urine Barbiturates Negative (Negative); Urine Benzodiazepines Negative (Negative); Urine Cocaine Negative (Negative); Urine MDMA Negative (Negative); Urine Methadone Negative (Negative); Urine Methamphetamines Negative (Negative); Urine Oxycodone Negative (Negative); Urine Phencyclidine Negative (Negative); Urine Tetrahydrocannabinol Negative (Negative); Urine Tricyclic Antidepressant Negative (Negative); Urine pH Normal (Normal)
[2024-09-20 15:48] LABS: Glucose 536 mg/dL (80-110)
[2024-09-20 15:51] LABS: Troponin I < 0.012 ng/mL (0.01-0.034)
--- NOTE | 2024-09-20 16:04 | ED.NEUROSD ---
HPI - Neuro Symptoms/Deficit General Chief Complaint: Neuro Symptoms/Deficit Stated Complaint: stroke symptoms Time Seen by Provider: 09/20/24 15:08 History of Present Illness HPI Narrative: this is a 79-year-old man complaining of vision changes and left hand numbness. He arrived as a modified code stroke. Who reported the onset of numbness not weakness but numbness in his left arm and hand distal to the elbow and involving the ring and small fingers. He noticed it earlier this morning. In addition, in his right eye he has intermittently had lateral loss of vision for 3 weeks or more but it is becoming more prevalent. He does not have right eye pain he does not use contact lenses. He has a history of diabetes and is noncompliant with diet arriving with a can of Coca[employer] and hand. He denies headaches nausea vomiting chest pain shortness of breath he has not had difficulty with speech or swallowing he has not had any focal weakness. He has a Current smoker. He does have a history a coronary artery disease with a VFib arrest on the cardiac catheterization table. Echocardiogram done in 2019 showed no significant valvular disease. I reviewed a cardiology consult from June of 2023. On Anticoagulants: No Related Data Home Medications Medication Instructions Recorded Confirmed amlodipine 5 mg tablet 5 mg PO DAILY 09/23/19 09/23/19 clopidogrel 75 mg tablet 75 mg PO DAILY 09/23/19 09/23/19 glipizide 10 mg tablet 10 mg PO BID 09/23/19 09/23/19 insulin glargine 100 unit/mL (3 30 unit SUBCUT DAILY 09/23/19 09/23/19 mL) subcutaneous pen (Lantus Solostar U-100 Insulin) lisinopril 20 mg tablet 20 mg PO DAILY 09/23/19 09/23/19 pravastatin 40 mg tablet 40 mg PO DAILY 09/23/19 09/23/19 sitagliptin phosphate 50 1 tab PO DAILY 09/23/19 09/23/19 mg-metformin 1,000 mg tablet (Janumet) tamsulosin 0.4 mg capsule 0.4 mg PO QPM 09/23/19 09/23/19 turmeric root extract 500 mg 500 mg PO DAILY 09/23/19 09/23/19 capsule venlafaxine 150 mg 150 mg PO DAILY 09/23/19 09/23/19 capsule,extended release 24 hr zolpidem 10 mg tablet 10 mg PO BEDTIME 09/23/19 09/23/19 Allergies Allergy/AdvReac Type Severity Reaction Status Date / Time No Known Drug Allergies Allergy Verified 09/23/19 13:44 Review of Systems Hematologic/Lymphatic On Anticoagulants: No Patient History Medical History (Updated 09/20/24 @ 18:10 by Abhi Lee MD) Tobacco abuse Hyperlipidemia Hypertension Diabetes CAD (coronary artery disease) Social History Smoking Status: Current every day smoker Smoking Status: Current every day smoker tobacco type: cigarettes Exam Initial Vital Signs Initial Vital Signs: Vital Signs Pulse Rate 113 H 09/20/24 15:01 Blood Pressure 217/107 H 09/20/24 15:01 Pulse Oximetry 98 09/20/24 15:01 Chronically ill-appearing elderly man who appears to be in no distress to be hypertensive [facility] Other: normocephalic atraumatic Neck Other: no carotid bruit Chest Other: Resp Other: breath sounds are equal Cardio Other: regular rhythm rate no murmur rub or gallop Neuro Cranial Nerves: CN's II-XI intact bilaterally Speech: speech normal Motor: strength 5/5 throughout Sensory Exam: other ( reports decreased light touch sensation in the small and ring fingers of t) Course Orders Ordered: ED Orders 09/20/24 15:05 CT angio head and neck Stat XR chest 1V Stat EKG-12 Lead Stat 09/20/24 15:09 Complete Blood Count AUTO DIFF Stat Comprehensive Metabolic Panel Stat Magnesium Stat PTT Partial Thromboplastin Julio Cesar Stat Prothrombin Time INR Stat Troponin & CK Cardiac Panel Stat 09/20/24 15:10 CT Stroke Stat 09/20/24 15:35 Urine Drug Screen, Rapid Stat 09/20/24 16:00 MR head/brain wo con Stat Ondansetron HCl (Ondansetron 4 Mg/2 Ml Inj) 4 mg IV NOW PRN PRN Reason: Nausea And Vomiting Ondansetron HCl (Ondansetron 4 Mg Odt) 4 mg SL NOW PRN PRN Reason: Nausea And Vomiting Discontinued Medications Aspirin (Aspirin Ec 325 Mg Tablet) 325 mg PO NOW ONE Stop: 09/20/24 16:46 Last Admin: 09/20/24 16:55 Dose: 325 mg Documented By: JORDAN Sodium Chloride (Normal Saline 0.9%) 1,000 mls @ 1,000 mls/hr IV BOLUS ONE Stop: 09/20/24 16:59 Last Infusion: 09/20/24 18:04 Dose: Infused Documented By: Admin: 09/20/24 16:20 Dose: 1,000 mls/hr Documented By: JORDAN Non-Formulary Medication (Labetolol) 20 mg IV NOW ONE Stop: 09/20/24 18:08 Consultations Consultation #1: Discussed with stroke Neurlogy at the [facility] Dr. Zhou Roman. recommends MRI brain, aspirin 325 now and we will recontact post MRI Consultation #2: at 5:50 p.m., spoke with Dr.Natasha Carrizales at [facility]. Given his visual field cuts, they would prefer that he be transferred to [facility] at this point without the MRI so they can complete stroke workup and have Ophthalmology evaluate him at that time. Patient will be transferred to the [facility] Emergency Department. Patient was agreeable to transfer. He is hypertensive I am ordering a dose of 20 mg of IV labetalol. He is appropriate for ALS ground transfer Vital Signs Vital signs: Vital Signs - 8 hr 09/20/24 15:01 09/20/24 15:01 09/20/24 15:06 Temperature 98.5 F Pulse Rate 113 H 106 H Respiratory Rate 20 Blood Pressure 217/107 H 217/107 H Pulse Oximetry 98 98 Oxygen Delivery Method Room Air 09/20/24 15:30 09/20/24 15:35 09/20/24 15:35 Temperature Pulse Rate 104 H 104 H Respiratory Rate 18 21 Blood Pressure 177/91 H Pulse Oximetry 99 98 Oxygen Delivery Method 09/20/24 16:00 09/20/24 16:00 09/20/24 16:30 Temperature Pulse Rate 101 H 98 H Respiratory Rate 22 Blood Pressure 156/82 H Pulse Oximetry 95 97 Oxygen Delivery Method Room Air 09/20/24 16:30 09/20/24 17:00 09/20/24 17:02 Temperature Pulse Rate 107 H 98 H Respiratory Rate 19 22 Blood Pressure 156/81 H Pulse Oximetry 97 Oxygen Delivery Method 09/20/24 17:02 09/20/24 17:30 09/20/24 17:30 Temperature Pulse Rate 91 H Respiratory Rate 22 Blood Pressure 186/89 H 167/93 H Pulse Oximetry 97 Oxygen Delivery Method 09/20/24 18:00 09/20/24 18:01 Temperature Pulse Rate 97 H 96 H Respiratory Rate 22 Blood Pressure Pulse Oximetry 98 98 Oxygen Delivery Method Room Air MDM - Neuro Symptoms/Deficit Lab Data Lab results narrative: glucose is elevated at 536. Has a normal creatinine, sodium slightly low at 132 this is probably affected by glucose. Mild anemia on CBC 09/20/24 15:09 09/20/24 15:09 Labs: Lab Results 09/20/24 09/20/24 Range/Units 15:09 15:35 WBC 7.2 (4.5-11.0) X10^3/uL RBC 4.11 L (4.5-5.9) X10^6/uL Hgb 13.2 L (13.5-17.5) g/dL Hct 38.2 L (41-53) % MCV 93.0 (80-100) fL MCH 32.0 (26-34) PG MCHC 34.5 (30-36) % RDW 12.8 (11.6-14.8) % Plt Count 259 (150-400) X10^3/uL Neut % (Auto) 63.7 (50-75) % Lymph % (Auto) 25.2 (25-40) % Graves % (Auto) 7.0 (3-14) % Eos % (Auto) 3.2 (2-4) % Baso % (Auto) 0.9 (0-2) % Neut # (Auto) 4600 (0416-9339) /uL Lymph # (Auto) 1800 (4075-1879) /uL Graves # (Auto) 500 (0-900) /uL Eos # (Auto) 200 (0-450) /uL Baso # (Auto) 100 (0-100) /uL PT 11.2 (9.4-12.5) SECONDS INR 1.0 (0.9-1.3) APTT 32 (25.1-36.5) SECONDS Sodium 132 L (137-145) mmol/L Potassium 4.3 (3.4-5.1) mmol/L Chloride 96 L (98-107) mmol/L Carbon Dioxide 25 (22-32) mmol/L BUN 16 (9-20) mg/dL Creatinine 0.64 L (0.66-1.25) mg/dL Estimated GFR > 60 (>60) mL/min BUN/Creatinine Ratio 25.0 H (6-22) Glucose 536 H* (80-110) mg/dL Calcium 8.9 (8.4-10.2) mg/dL Magnesium 1.6 (1.6-2.3) mg/dL Total Bilirubin 0.6 (0.2-1.3) mg/dL AST 31 (17-59) IU/L ALT 32 (<50) IU/L Alkaline Phosphatase 144 H (38-126) U/L Total Creatine Kinase 76 (55-170) U/L Troponin I < 0.012 (0.01-0.034) ng/mL Total Protein 6.8 (6.3-8.2) g/dL Albumin 4.3 (3.5-5.0) g/dL Globulin 2.5 (1.7-4.1) g/dL Albumin/Globulin Ratio 1.7 (1.0-2.8) U Opiates 300ng/mL cut Negative (Negative) Ur Oxycodone Screen Negative (Negative) Urine Methadone Screen Negative (Negative) Ur Barbiturates Screen Negative (Negative) U Tricyclic Antidepress Negative (Negative) Ur Phencyclidine Scrn Negative (Negative) Ur Amphetamines Screen Negative (Negative) U Methamphetamines Scrn Negative (Negative) Ur MDMA Scrn (Ecstasy) Negative (Negative) U Benzodiazepines Scrn Negative (Negative) Urine Cocaine Screen Negative (Negative) U Marijuana (THC) Screen Negative (Negative) Urine pH Normal (Normal) Urine Specific [place] Normal (Normal) Ur Creatinine Normal (Normal) Urine Dip Bedside Urine Glucose Negative Bedside Urine Bilirubin - Negative Bedside Urine Ketone - Negative Urine Specific [place] 1.010 Bedside Urine Occult Blood - Negative Bedside Urine pH 6.5 Bedside Urine Protein - Negative Bedside Urine Urobilinogen - Negative Bedside Urine Nitrite - Negative Bedside Urine Leukocytes - Negative Esterase Imaging Data CT scan - head: My Impression: independently reviewed CT head, no acute findings Radiologist's Impression: radiology called reported CT head to be negative CT angio head and neck: Radiologist's Impression: [address] [address] [address] Scan Report Signed Patient: Sherif Morataya MR#: [id number] : 1945 Acct:[id number] Age/Sex: 79 / M Date of Service: 09/20/24 Loc: ED Accession Number: [id number] Procedure: CT angio head and neck Ordering Provider: Abhi Lee MD PROCEDURE: CT ANGIO HEAD AND NECK INDICATIONS: left arm weakness/R peripheral vision loss 0830 TECHNIQUE: After the administration of intravenous contrast, 1 mm thick sections acquired from the aortic arch through the [place]. 3-dimensional whhbpqh-qnubepxqi-igulvfduxv (MIP) and/or volume rendering reformats were acquired of the central intracranial vasculature and neck separately. For radiation dose reduction, the following was used: automated exposure control, adjustment of mA and/or kV according to patient size. COMPARISON: [facility], CT, CT STROKE, 09/20/2024, 15:10. FINDINGS: Image quality: Diagnostic. BRAIN: Please see the separately dictated noncontrast CT of the head performed at the same time. No suspicious intracranial arterial phase enhancement. Mild mucosal thickening is seen in the left sphenoid sinus. The remaining paranasal sinuses and the mastoid air cells are clear. HEAD CT ANGIOGRAPHY: Anterior circulation: Intracranial internal carotid arteries demonstrate atherosclerotic calcifications without hemodynamically significant stenosis. Mildly prominent fluid in the right ophthalmic artery. Suspected 2 mm aneurysm in the supraclinoid right ICA at the ophthalmic artery origin. The flow within the paired anterior cerebral arteries is normal and symmetric. The flow within the middle cerebral arteries is normal and symmetric. The anterior communicating artery is seen. No aneurysms are seen. Posterior circulation: Intracranial portion of the left vertebral artery is diminutive. Atherosclerotic calcifications are seen in the intracranial portion of the right vertebral artery and the basilar artery without definite hemodynamically significant stenosis. Visualized portions of the vertebral arteries demonstrate normal caliber, and join to form a normal appearing basilar artery. Flow within the posterior cerebral arteries is normal and symmetric. No aneurysms are seen. NECK CT ANGIOGRAPHY: Carotid system: The great vessels demonstrate a conventional anatomy as they arise from the aortic arch. Atherosclerotic plaque result in loss of vertebra sent narrowing of the left subclavian artery at the origin The origins of the common carotid arteries appear patent. The common carotid arteries demonstrate normal caliber and courses. Severe atherosclerotic calcifications at the right carotid bifurcation resulting in greater than 70% stenosis of the proximal right internal carotid artery. Probable postsurgical changes from left carotid endarterectomy without recurrent narrowing. Posterior circulation: Streak artifact obscures the left vertebral artery origin. Right vertebral artery is congenitally dominant. Atherosclerotic calcifications in the proximal right vertebral artery without hemodynamically significant stenosis. The more superior extracranial portions of both vertebral arteries also demonstrate normal courses and calibers. Soft tissues: Nonspecific subcutaneous edema in the posterior suboccipital scalp. Bones: No suspicious bony lesions. Multilevel cervical spondylosis. IMPRESSION: 1. No hemodynamically significant intracranial arterial stenosis or large vessel occlusion. 2. 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 3. Greater than 70% stenosis of the right internal carotid artery at the carotid bifurcation. 4. Status post left carotid endarterectomy. Any quantitative measurements of stenosis were performed using NASCET criteria. Approved by: Uri Ruano M.D. on 09/20/2024 at 15:41 Chest x-ray: My Impression: No acute findings on my review of the chest x-ray Radiologist's Impression: [address] [address] XRay Report Signed Patient: Sherif Morataya MR#: [id number] : 1945 Acct:[id number] Age/Sex: 79 / M Date of Service: 09/20/24 Loc: ED Accession Number: [id number] Procedure: XR chest 1V Ordering Provider: Abhi Lee MD PROCEDURE: XR CHEST 1V INDICATIONS: Possible stroke TECHNIQUE: One view of the chest was acquired. COMPARISON: [facility], CR, XR CHEST 2V, 09/28/2023, 11:52. [facility], CR, XR CHEST 1V, 09/23/2019, 12:49. FINDINGS: Surgical changes and devices: Surgical clips project over the left neck. Lungs and pleura: Mildly low lung volumes bilaterally, which accentuate pulmonary markings. No pleural effusions or pneumothorax. Mediastinum: Mediastinal contours appear normal. Heart size is normal. Bones and chest wall: No suspicious bony lesions. Overlying soft tissues appear unremarkable. IMPRESSION: No acute cardiopulmonary abnormality is seen. ECG Data Interpretation: EKG shows sinus rhythm at 105 there is a right MDM Narrative Medical decision making narrative: 79-year-old male diabetic with known vascular disease and noncompliance presenting with lateral visual field cut on the right eye that is been intermittent for 3 weeks and progressive as well as ulnar numbness in the left upper extremity. Differential diagnosis includes stroke, peripheral neuropathy, retinal pathology or ophthalmic artery occlusion. CT is negative for stroke however imaging shows an aneurysm of the right internal carotid at the origin of the right ophthalmic artery. He was given aspirin, he was given labetalol for his hypertension case was discussed with stroke Neurology at [facility] and they recommend that he be transferred to their emergency department for further evaluation including Neurology and Ophthalmology. Patient is agreeable for transfer and stable for transfer. Blood sugar is quite elevated here who is also given a L of saline for this. Discharge Plan Departure Patient Disposition: [facility] Clinical Impression: Aneurysm, cerebral, Visual field cut, Left arm numbness Prescriptions: No Action pravastatin 40 mg tablet 40 mg PO DAILY Patient Comments: TAKE 1 TABLET BY MOUTH ONCE DAILY AT BEDTIME lisinopril 20 mg tablet 20 mg PO DAILY Patient Comments: TAKE 1 TABLET BY MOUTH ONCE DAILY glipizide 10 mg tablet 10 mg PO BID Patient Comments: TAKE 1 TABLET BY MOUTH TWICE DAILY venlafaxine 150 mg capsule,extended release 24hr 150 mg PO DAILY Patient Comments: TAKE 1 CAPSULE BY MOUTH ONCE DAILY clopidogrel 75 mg tablet 75 mg PO DAILY Patient Comments: TAKE 1 TABLET BY MOUTH ONCE DAILY amlodipine 5 mg tablet 5 mg PO DAILY Patient Comments: TAKE 1 TABLET BY MOUTH ONCE DAILY tamsulosin 0.4 mg capsule 0.4 mg PO QPM Patient Comments: TAKE 1 CAPSULE BY MOUTH IN THE EVENING zolpidem 10 mg tablet 10 mg PO BEDTIME Patient Comments: TAKE 1 TABLET BY MOUTH ONCE DAILY AT BEDTIME Janumet 50-1,000 mg tablet 1 tab PO DAILY Patient Comments: TAKE 1 TABLET BY MOUTH ONCE DAILY Lantus Solostar U-100 Insulin 100 unit/mL (3 mL) insulin pen 30 unit SUBCUT DAILY Patient Comments: INJECT 30 UNITS SUBCUTANEOUSLY DAILY turmeric root extract 500 mg Capsule 500 mg PO DAILY Referrals: Pamela Powell PA-C [Primary Care Provider] -
[2024-09-20] MEDS: SODIUM CHLORIDE 0.9% 1,000 ML 1000 ML IV (16:20)
[2024-09-20] MEDS: ASPIRIN EC 325 MG TABLET PO (16:55)
[2024-09-20] MEDS: LABETALOL 20 MG/4 ML SYRINGE IV (18:31)
--- NOTE | 2024-09-20 18:39 | PC.NURSE ---
MANAGER AUTOMOTIVE Note: /[facility] contacted for possible transfer at 1627. Demographics, images, and imaging report sent to [facility] by fax. Consult with Dr. Carrizales requested MRI prior to transport decision. 1814 [facility] accepts ED to ED. [facility] ETA 2039. [facility] notified of ETA.
== END 2024-09-20 20:45 | disposition short-term general hospital (02) ==
PROVIDERS: Emergency Provider Emergency Medicine; PCP Student in an Organized Health Care Education/Training Program
DX: I67.1 Cerebral aneurysm, nonruptured (principal); H53.8 Other visual disturbances; R20.0 Anesthesia of skin; F17.210 Nicotine dependence, cigarettes, uncomplicated
CPT/HCPCS: 36415; 70450; 70496; 70498; 71045; 80053; 80305; 81003; 82550; 83735; 84484; 85025; 85610; 85730; 93005; 96361; 96374; 99285; Q9967

== ENCOUNTER → 2025-06-01 08:43 | Outpatient (CLI) | payer MEDICARE, SELFPAY ==
--- NOTE | 2025-06-01 08:44 | DI.CT.S_ITS ---
PROCEDURE: CT CHEST ABD PEL W CON INDICATIONS: malaise; 10% wt loss; flank pain TECHNIQUE: After the administration of intravenous contrast, 5 mm thick sections acquired from the lung apices to the symphysis. 5 mm coronal and sagittal reformats were performed, with additional 7 mm MIP reformats through the lungs. For radiation dose reduction, the following was used: automated exposure control, adjustment of mA and/or kV according to patient size. COMPARISON: None. FINDINGS: Image quality: Excellent. CHEST: Lower Neck: No adenopathy. Thyroid: Normal CT appearance. Axillae: No enlarged lymph nodes. Chest Wall: Unremarkable. Lungs and Pleura: Mild bilateral peripheral reticulation with a basal predominance. Mild right lower lobe traction bronchiectasis. No honeycombing changes. Airways are otherwise normal. Pleural irregularity involving the lung bases and lower fissures. No pleural effusion or calcification. Triangular nodular opacity in the subpleural left lower lobe measuring 6 mm. No other nodules or masses. Heart: Heart size is normal. No pericardial effusion. Heavy coronary artery calcification. Moderate aortic valvular calcification. Thoracic Vessels: Normal caliber. Mild to moderate atherosclerotic calcification. Mediastinum and Yissel: No enlarged lymph nodes. Esophagus: Circumferential, long segment, smooth esophageal wall thickening. There is oral contrast in the distal esophagus. No significant hiatal hernia. ABDOMEN: Liver: No solid mass. Gallbladder: No wall thickening or calcified stones. Biliary ducts: No biliary dilation. Pancreas: No ductal dilation. Spleen: Size is within normal limits. Adrenal Glands: No adrenal nodules. Kidneys and Ureters: Nonobstructing upper and lower pole calcifications, predominantly in the left kidney. The largest is in the left upper pole major calyx calcification measuring 1.2 cm. No hydronephrosis or perinephric inflammation. Several small cortical cysts are present bilaterally. No enhancing mass. No hydroureter. Stomach and Bowel: Stomach and small bowel loops are normal caliber. Increased quantity of solid stool present. Normal appendix. Descending and sigmoid colon diverticulosis. Peritoneum: No abnormal intraperitoneal fluid. No free air. Ventral Wall: No significant ventral hernia. Abdominal Nodes: No retroperitoneal or mesenteric adenopathy by size criteria. Vessels: The abdominal aorta, IVC, and portal vein are of normal caliber. Heavy abdominal aortic atherosclerotic calcification. PELVIS: Pelvic Organs: Unremarkable. Bladder: No stones or wall thickening. Pelvic Nodes: No enlarged lymph nodes. Miscellaneous: Prior right inguinal hernia repair. Bones: No aggressive osseous abnormality. Wedging deformity of T11 with mild inferior endplate sclerosis. IMPRESSION: Findings suspicious for developing interstitial lung disease, probably IPF. Findings are not yet diagnostic. Differential diagnosis remains broad. Heavy coronary artery and systemic atherosclerotic calcification. Multiple nonobstructing intrarenal calculi, the largest in the left kidney. No other changes to suggest acute or chronic obstructive uropathy. Diffuse distal esophageal wall thickening. Given uniformity, esophagitis, likely reflux associated is most likely. Correlate clinically. Colonic obstipation. Dictated by: Marycarmen Churchill M.D. on 06/01/2025 at 11:38 Approved by: Marycarmen Churchill M.D. on 06/01/2025 at 11:50
[2025-06-01 09:35] LABS: Estimated Glomerular Filt Rate > 60 mL/min (>60)
== END ==
LOC: CT 08:44
PROVIDERS: Radiology Diagnostic Radiology; PCP Student in an Organized Health Care Education/Training Program; Referring Provider Student in an Organized Health Care Education/Training Program; Visit Provider Family Medicine
DX: J47.9 Bronchiectasis, uncomplicated (principal); I25.10 Atherosclerotic heart disease of native coronary artery without angina pectoris; I70.0 Atherosclerosis of aorta; N20.0 Calculus of kidney; K59.00 Constipation, unspecified; R10.A0 Flank pain, unspecified side; R63.4 Abnormal weight loss; R68.81 Early satiety; R53.81 Other malaise; R53.83 Other fatigue
CPT/HCPCS: 36415; 71260; 74177; 82565; Q9967